=== PATIENT | male | born 2000 | race Caucasian/White ===

== ENCOUNTER 2021-08-04 08:00 | Outpatient (CLI) | payer SELFPAY | END 2021-08-04 23:59 | LOC: LAB.N 08:00 | PROVIDERS: ATTEND Physician Assistant Medical | DX: R05.9 Cough, unspecified (principal); R09.81 Nasal congestion; Z20.822 Contact with and (suspected) exposure to COVID-19 ==

== ENCOUNTER 2021-09-21 19:18 | Emergency (ER) | payer OTHER ==
--- NOTE | 2021-09-21 19:47 | ED Physician Documentation ---
PD HPI CHEST PAIN - Stated complaint Stated Complaint: ELECTRICAL SHOCK - Chief complaint Chief Complaint: Cardiac - History obtained from History obtained from: Patient - Additional information Additional information: Electric shock to the left thumb around 530 tonight while working on [employer] V equipment at the [employer]. Subsequently developed some substernal chest pain which is now gone. He feels okay now. No thumb or arm pain. Review of Systems Nose: denies: Rhinorrhea / runny nose, Congestion Cardiac: denies: Palpitations, Pedal edema, Calf pain Respiratory: denies: Dyspnea, Cough, Hemoptysis, Wheezing PD PAST MEDICAL HISTORY - Present Medications Home Medications: Ambulatory Orders Medication Instructions Recorded Confirmed No Known Home Medications 09/21/21 09/21/21 - Allergies Allergies/Adverse Reactions: Allergies Allergy/AdvReac Type Severity Reaction Status Date / Time No Known Drug Allergies Allergy Verified 09/21/21 19:27 PD ED PE NORMAL - Vitals Vital signs reviewed: Yes - General General: Alert and oriented X 3, No acute distress - Neck Neck: Supple, no meningeal sign, No bony TTP - Cardiac Cardiac: RRR, No murmur - Respiratory Respiratory: No respiratory distress, Clear bilaterally - Abdomen Abdomen: Normal bowel sounds, Soft, Non tender - Back Back: No CVA TTP, No spinal TTP - Derm Derm: Normal color, Warm and dry - Extremities Extremities: No edema - Neuro Neuro: Alert and oriented X 3, Normal speech Results - Vitals Vitals: Vital Signs - 24 hr 09/21/21 09/21/21 19:21 19:52 Temperature 36.1 C L 36.3 C L Heart Rate 76 71 Respiratory 18 18 Rate Blood Pressure 149/78 H 141/75 H O2 Saturation 100 100 Oxygen O2 Source Room air - EKG (time done) 1928 Rate: Rate (enter#) (92) Rhythm: NSR [place]: Normal Intervals: Normal NC Ischemia: Normal ST segments PD MEDICAL DECISION MAKING - ED course ED course: 21-year-old gentleman presents after electric shock with normal exam and normal EKG. Its been 2 hours already so he is cleared to return to work without specific limitations. Departure - Departure Disposition: 01 Home, Self Care Clinical Impression: Electric shock Condition: Good Record reviewed to determine appropriate education?: Yes Instructions: ED Chest Pain Atypical Unkn Cause Forms: Activity restrictions Discharge Date/Time: 09/21/21 20:10
[2021-09-21 19:54] VITALS: BP 141/75
== END 2021-09-21 20:10 | disposition home or self-care (01) ==
LOC: ED 19:18
DX: S69.92XA Unspecified injury of left wrist, hand and finger(s), initial encounter (principal); W86.8XXA Exposure to other electric current, initial encounter; Y92.139 Unspecified place military base as the place of occurrence of the external cause; Y99.1 Military activity
CPT/HCPCS: 93005; 99282; 99283

== ENCOUNTER 2021-12-13 23:19 | Emergency (ER) | payer OTHER ==
[2021-12-13 23:54] LABS: BASOPHILS % (AUTO) 0.5 %; EOSINOPHILS # (AUTO) 0.2 10^3/uL (0.0-0.7); EOSINOPHILS % (AUTO) 3.2 %; HCT - HEMATOCRIT 42.1 % (42.0-52.0); HGB - HEMOGLOBIN 14.4 g/dL (14.0-18.0); LYMPHOCYTES # (AUTO) 2.1 10^3/uL (1.5-3.5); LYMPHOCYTES % (AUTO) 36.8 %; MEAN CORPUSCULAR HGB CONC 34.2 g/dL (32.0-36.0); MEAN CORPUSCULAR VOLUME 84.7 fL (80.0-94.0); MEAN PLATELET VOLUME 10.5 fL (7.4-11.4); MONOCYTES # (AUTO) 0.4 10^3/uL (0.0-1.0); MONOCYTES % (AUTO) 7.4 %; NEUTROPHILS % (AUTO) 51.9 %; PLT - PLATELET COUNT 243 10^3/uL (130-450); RED BLOOD COUNT 4.97 10^6/uL (4.70-6.10); RED CELL DISTRIBUTION WIDTH 11.9 % (12.0-15.0); WHITE BLOOD COUNT 5.7 x10^3/uL (4.8-10.8)
[2021-12-14 00:06] LABS: ALBUMIN 4.8 g/dL (3.2-5.5); ALBUMIN/GLOBULIN RATIO 1.5 (1.0-2.2); BILIRUBIN,TOTAL 0.3 mg/dL (0.2-1.0); CALCIUM 9.5 mg/dL (8.5-10.3); CREATININE 1.1 mg/dL (0.6-1.2); POTASSIUM 3.9 mmol/L (3.5-5.0)
[2021-12-14 00:13] LABS: BILIRUBIN,URINE NEGATIVE (NEGATIVE); GLUCOSE, URINE (UA) NEGATIVE (NEGATIVE); KETONES,URINE (UA) NEGATIVE (NEGATIVE); LEUKOCYTE ESTERASE, URINE NEGATIVE (NEGATIVE); NITRITE,URINE NEGATIVE (NEGATIVE); OCCULT BLOOD,URINE NEGATIVE (NEGATIVE); PH,URINE 5.5 PH (5.0-7.5); PROTEIN,URINE NEGATIVE (NEGATIVE); UROBILINOGEN,URINE 0.2 (NORMAL) E.U./dL (NORMAL)
[2021-12-14 00:16] LABS: CLARITY,URINE CLEAR (CLEAR)
--- NOTE | 2021-12-14 00:46 | ED Physician Documentation ---
PD HPI ABD PAIN - Stated complaint Stated Complaint: ABD PX - Chief complaint Chief Complaint: Abd Pain - History obtained from History obtained from: Patient - History of Present Illness Timing - onset: How many days ago (3) Timing - details: Gradual onset, Waxing and waning Pain level now: 3 Quality: Pain Location: RUQ, RLQ Radiation: Right flank Associated symptoms: Nausea (3 days ago but no nausea since then), Constipation. No: Fever, Vomiting, Diarrhea, Melena, Hematochezia Similar symptoms before: Has not had sx before Recently seen: Not recently seen - Additional information Additional information: patient says he was constipated last week but used magnesium citrate and miralax with subsequent BM including earlier today. He had nausea without vomiting 3 days ago but not since. He c/o 3 days of right-sided abdominal pain, intermittent / episodic. No inciting, exacerbating, or ameliorating factors. He is pain -free at the time of this H+P. He denies h/o similar pain. Review of Systems Constitutional: reports: Reviewed and negative GI: reports: Abdominal Pain, Nausea (3 days ago but resolved), Constipation. denies: Vomiting : denies: Dysuria, Frequency, Hematuria PD PAST MEDICAL HISTORY - Past Medical History Past Medical History: Yes HEENT: Other Other Past Medical History: Mononucleosis - Past Surgical History Past Surgical History: No - Present Medications Home Medications: Ambulatory Orders Medication Instructions Recorded Confirmed No Known Home Medications 09/21/21 12/13/21 - Allergies Allergies/Adverse Reactions: Allergies Allergy/AdvReac Type Severity Reaction Status Date / Time No Known Drug Allergies Allergy Verified 12/13/21 23:26 - Social History Does the pt smoke?: No Smoking Status: Never smoker Does the pt drink ETOH?: No Does the pt have substance abuse?: No - Immunizations Immunizations are current?: Yes - POLST Patient has POLST: No PD ED PE NORMAL - Vitals Vital signs reviewed: Yes - General General: Alert and oriented X 3, No acute distress, Well developed/nourished - Cardiac Cardiac: RRR, No murmur - Respiratory Respiratory: No respiratory distress, Clear bilaterally - Abdomen Abdomen: Normal bowel sounds, Soft, Non tender, Non distended, No organomegaly - Back Back: No CVA TTP - Derm Derm: No rash Results - Vitals Vitals: Oxygen O2 Source Room air - Labs Labs: Laboratory Tests 12/13/21 12/13/21 12/13/21 23:35 23:35 23:53 WBC 5.7 RBC 4.97 Hgb 14.4 Hct 42.1 MCV 84.7 MCH 29.0 MCHC 34.2 RDW 11.9 L Plt Count 243 MPV 10.5 Neut # (Auto) 3.0 Lymph # (Auto) 2.1 [place] # (Auto) 0.4 Eos # (Auto) 0.2 Baso # (Auto) 0.0 Absolute Nucleated RBC 0.00 Nucleated RBC % 0.0 Sodium 141 Potassium 3.9 Chloride 104 Carbon Dioxide 26 Anion Gap 11.0 BUN 16 Creatinine 1.1 Estimated GFR (MDRD) 85 L Glucose 104 H Calcium 9.5 Total Bilirubin 0.3 AST 23 ALT 22 Alkaline Phosphatase 60 Total Protein 8.0 Albumin 4.8 Globulin 3.2 Albumin/Globulin Ratio 1.5 Lipase 34 Urine Color YELLOW Urine Clarity CLEAR Urine pH 5.5 Ur Specific [place] >=1.030 H Urine Protein NEGATIVE Urine Glucose (UA) NEGATIVE Urine Ketones NEGATIVE Urine Occult Blood NEGATIVE Urine Nitrite NEGATIVE Urine Bilirubin NEGATIVE Urine Urobilinogen 0.2 (NORMAL) Ur Leukocyte Esterase NEGATIVE Ur Microscopic Review NOT INDICATED Urine Culture Comments NOT INDICATED PD MEDICAL DECISION MAKING - ED course Complexity details: reviewed results, re-evaluated patient, considered differential, d/w patient ED course: essentially normal blood tests and UA (UA with high SG but otherwise normal, CBC with minimally low RDW but otherwise normal, and ER abd. panel with glucose 104 and 85 GFR but normal BUN, creatinine). Differential includes renal colic (unlikely given lack of hematuria and considering patients age), biliary colic (also would be unusual for age), constipation (symptoms not improved after BM today, but would still be possibility). Doubt appendicitis (pain-free on this exam, nontender on exam, no leukocytosis). Results d/w patient, return precautions discussed. Departure - Departure Disposition: 01 Home, Self Care Clinical Impression: Abdominal pain Qualifiers: Abdominal location: right upper quadrant Qualified Code(s): R10.11 - Right upper quadrant pain Condition: Good Instructions: ED Abdominal Pain Unkn Cause Male Follow-Up: ALEA Penn [Provider Group] Comments: As we discussed, your lab test results are normal. This does not mean absence of a cause of your pain, but at this time, based on these tests as well as the lack of pain/tenderness on the physical exam, further emergent testing is not indicated at this time. Follow up with your primary care provider in 3-5 days for reevaluation. Discharge Date/Time: 12/14/21 01:20
[2021-12-14 01:21] VITALS: BP 122/68
== END 2021-12-14 01:20 | disposition home or self-care (01) ==
LOC: ED 23:19
DX: R10.11 Right upper quadrant pain (principal)
CPT/HCPCS: 36415; 80053; 81001; 81003; 83690; 85025; 87086; 99282; 99283

== ENCOUNTER 2022-01-05 15:27 | Emergency (ER) | payer OTHER ==
[2022-01-05 16:10] LABS: BASOPHILS % (AUTO) 0.5 %; EOSINOPHILS % (AUTO) 0.7 %; HCT - HEMATOCRIT 42.3 % (42.0-52.0); HGB - HEMOGLOBIN 14.3 g/dL (14.0-18.0); LYMPHOCYTES # (AUTO) 1.3 10^3/uL (1.5-3.5); LYMPHOCYTES % (AUTO) 29.7 %; MEAN CORPUSCULAR HEMOGLOBIN 28.7 pg (27.0-31.0); MEAN CORPUSCULAR HGB CONC 33.8 g/dL (32.0-36.0); MEAN CORPUSCULAR VOLUME 84.9 fL (80.0-94.0); MEAN PLATELET VOLUME 10.6 fL (7.4-11.4); MONOCYTES # (AUTO) 0.3 10^3/uL (0.0-1.0); MONOCYTES % (AUTO) 6.2 %; NEUTROPHILS # (AUTO) 2.6 10^3/uL (1.5-6.6); NEUTROPHILS % (AUTO) 62.7 %; PLT - PLATELET COUNT 192 10^3/uL (130-450); RED BLOOD COUNT 4.98 10^6/uL (4.70-6.10); RED CELL DISTRIBUTION WIDTH 11.9 % (12.0-15.0); WHITE BLOOD COUNT 4.2 x10^3/uL (4.8-10.8)
[2022-01-05 16:22] LABS: ALBUMIN/GLOBULIN RATIO 1.5 (1.0-2.2); BILIRUBIN,TOTAL 0.5 mg/dL (0.2-1.0); CALCIUM 10.5 mg/dL (8.5-10.3); CREATININE 1.3 mg/dL (0.6-1.2); POTASSIUM 3.8 mmol/L (3.5-5.0); TOTAL PROTEIN 8.3 g/dL (6.7-8.2)
--- NOTE | 2022-01-05 17:14 | ED Physician Documentation ---
PD HPI ABD PAIN - Stated complaint Stated Complaint: DIARRHEA,DIZZY - Chief complaint Chief Complaint: Abd Pain - History obtained from History obtained from: Patient - History of Present Illness Timing - onset: How many months ago (1) Timing - duration: Months (1) Timing - details: Gradual onset Pain level max: 5 Pain level now: 5 Quality: Aching, Pain Location: Periumbilical, RLQ Associated symptoms: Diarrhea, Constipation. No: Fever, Nausea, Vomiting, Melena, Hematochezia, Dysuria, Chest pain - Additional information Additional information: No recent travel. No recent antibiotics. Nothing makes it better or worse. Review of Systems Constitutional: denies: Fever, Chills GI: denies: Vomiting, Hematemesis, Bloody / black stool Skin: denies: Rash Musculoskeletal: denies: Neck pain, Back pain Neurologic: denies: Headache PD PAST MEDICAL HISTORY - Past Medical History Past Medical History: No HEENT: Other - Past Surgical History Past Surgical History: No - Present Medications Home Medications: Ambulatory Orders Medication Instructions Recorded Confirmed polyethylene glycoL 3350 [Miralax] 17 gm PO DAILY 01/05/22 01/05/22 - Allergies Allergies/Adverse Reactions: Allergies Allergy/AdvReac Type Severity Reaction Status Date / Time No Known Drug Allergies Allergy Verified 01/05/22 15:41 - Social History Does the pt smoke?: No Smoking Status: Never smoker Does the pt drink ETOH?: No Does the pt have substance abuse?: No - Immunizations Immunizations are current?: Yes - POLST Patient has POLST: No PD ED PE NORMAL - Vitals Vital signs reviewed: Yes - General General: Alert and oriented X 3, No acute distress, Well developed/nourished - HEENT HEENT: PERRL, Moist mucous membranes - Neck Neck: Supple, no meningeal sign - Cardiac Cardiac: RRR, Strong equal pulses - Respiratory Respiratory: No respiratory distress, Clear bilaterally - Abdomen Abdomen: Soft, Non distended, Other (Mild tenderness palpation right lower quadrant. No peritoneal signs) - Back Back: No CVA TTP, No spinal TTP - Derm Derm: Warm and dry - Neuro Neuro: Alert and oriented X 3 - Psych Psych: Normal mood, Normal affect Results - Vitals Vitals: Vital Signs - 24 hr 01/05/22 01/05/22 15:35 17:37 Temperature 36.8 C 36.6 C Heart Rate 77 78 Respiratory 12 18 Rate Blood Pressure 115/63 142/90 H O2 Saturation 100 99 Oxygen O2 Source Room air - Labs Labs: Laboratory Tests 01/05/22 01/05/22 16:03 16:03 WBC 4.2 L RBC 4.98 Hgb 14.3 Hct 42.3 MCV 84.9 MCH 28.7 MCHC 33.8 RDW 11.9 L Plt Count 192 MPV 10.6 Neut # (Auto) 2.6 Lymph # (Auto) 1.3 L [place] # (Auto) 0.3 Eos # (Auto) 0.0 Baso # (Auto) 0.0 Absolute Nucleated RBC 0.00 Nucleated RBC % 0.0 Sodium 142 Potassium 3.8 Chloride 103 Carbon Dioxide 29 Anion Gap 10.0 BUN 15 Creatinine 1.3 H Estimated GFR (MDRD) 70 L Glucose 95 Calcium 10.5 H Total Bilirubin 0.5 AST 41 ALT 51 Alkaline Phosphatase 54 Total Protein 8.3 H Albumin 5.0 Globulin 3.3 Albumin/Globulin Ratio 1.5 Lipase 28 - Rads (name of study) CT abdomen pelvis without contrast Radiology: Final report received, EMP read contemporaneously, See rad report PD MEDICAL DECISION MAKING - ED course Complexity details: reviewed results, re-evaluated patient, considered differential, d/w patient ED course: 21-year-old male presents to the emergency department with intermittent constipation for the past month as well as right lower quadrant abdominal pain. Diarrhea since starting MiraLAX. We will have him stop the MiraLAX. No sign ificant lab abnormalities. CT scan shows a proximal colitis with thickening of the cecum ascending and transverse colon. Has not had any fevers. No recent antibiotics or travel. We will have him follow-up with his doctor for further evaluation including colonoscopy. Patient is well-appearing, nontoxic. Afebrile. The CT scan was performed without IV contrast as there is a national shortage of IV contrast. The remaining doses of IV contrast are reserved for specific indications and this patient does not meet criteria at this time. Patient counseled regarding signs and symptoms for which I believe and urgent re-evaluation would be necessary. Patient with good understanding of and agreement to plan and is comfortable going home at this time This document was made in part using voice recognition software. While efforts are made to proofread this document, sound alike and grammatical errors may occur. IMPRESSION: Proximal colitis, thickening of the cecum, ascending colon and transverse colon. Please correlate with potential infectious and inflammatory causes. No findings of perforation or abscess can be seen. Normal appendix. Normal-appearing terminal ileum. Departure - Departure Disposition: 01 Home, Self Care Clinical Impression: Abdominal pain Qualifiers: Abdominal location: unspecified location Qualified Code(s): R10.9 - Unspecified abdominal pain Diarrhea Qualifiers: Diarrhea type: unspecified type Qualified Code(s): R19.7 - Diarrhea, unspecified Constipation Qualifiers: Constipation type: unspecified constipation type Qualified Code(s): K59.00 - Constipation, unspecified Condition: Good Instructions: ED Abdominal Pain Unkn Cause Male Follow-Up: ALBIN MARQUES DO [Primary Care Provider] - Within 1 week Comments: Please follow-up with your doctor for further care. Return if you worsen. I would stop the MiraLAX until you have been seen by your doctor. The next step in your care will likely be colonoscopy and a referral to gastroenterology. You could have something such as irritable bowel syndrome. Your blood work and CT scan do not show any acute abnormalities today. Make sure you are drinking plenty of water at home. Avoid alcohol and caffeine. Your CT scan does show a proximal colitis with thickening of your cecum. This could be seen in inflammatory bowel disease such as ulcerative colitis or Crohn's disease. This could also be seen with a potential infectious disease such as a viral colitis. IMPRESSION: Proximal colitis, thickening of the cecum, ascending colon and transverse colon. Please correlate with potential infectious and inflammatory causes. No findings of perforation or abscess can be seen. Normal appendix. Normal-appearing terminal ileum. Discharge Date/Time: 01/05/22 17:38
--- NOTE | 2022-01-05 17:14 | CT Report ---
PROCEDURE: Abdomen/Pelvis WO INDICATIONS: RLQ abd pain TECHNIQUE: Noncontrast 5 mm thick sections acquired from the diaphragms to the symphysis. 5 mm coronal and sagi ttal reformats were then performed. For radiation dose reduction, the following was used: automated exposure control, adjustment of mA and/or kV according to patient size. COMPARISON: None. FINDINGS: Image quality: Excellent. ABDOMEN: Lung bases: Lung bases are clear. Heart size is normal. Solid organs: Liver and spleen are normal in size. Gallbladder Dr. Wall Pancreas is normal in cont ours. No adrenal nodules. Kidneys are normal in size, without hydronephrosis or nephrolithiasis. Peritoneum and bowel: In this patient with this given history, scrutiny is given to the appendix. Th e appendix is well-seen and is normal, as seen on series 6 images 22 and 23. No focal right lower luis carlos drant inflammatory changes are seen. Moderate wall thickening can be seen involving the cecum and the ascending colon with involvement of the transverse colon. The more distal colon is collapsed, yet does not demonstrate significant wall t hickening. Minimal surrounding inflammatory change can be seen. No free fluid or air. Negative for a bscess. The terminal ileum is normal. No significant small bowel abnormality can be seen. Nodes and vessels: No retroperitoneal or mesenteric adenopathy by size criteria. Aorta and inferior vena cava are normal in caliber. Miscellaneous: No ventral hernias. PELVIS: Genitourinary: Bladder wall thickness is normal. Miscellaneous: No inguinal hernias or adenopathy. Bones: No suspicious bony lesions. No vertebral body compression fractures. IMPRESSION: Proximal colitis, thickening of the cecum, ascending colon and transverse colon. Please correlate wit h potential infectious and inflammatory causes. No findings of perforation or abscess can be seen. Normal appendix. Normal-appearing terminal ileum. Reviewed by: Miki Rincon MD on 01/05/2022 4:13 PM [email or web address] Approved by: Miki Rincon MD on 01/05/2022 4:13 PM AKDT Station ID: [id number]
[2022-01-05 17:38] VITALS: BP 142/90
== END 2022-01-05 17:38 | disposition home or self-care (01) ==
LOC: ED 15:27
DX: K59.00 Constipation, unspecified (principal); R19.7 Diarrhea, unspecified
CPT/HCPCS: 36415; 80053; 83690; 85025; 99282; 99284

== ENCOUNTER 2023-09-16 09:50 | Outpatient (CLI) | payer OTHER ==
--- NOTE | 2023-09-16 10:38 | Sleep Patient Instructions ---
Sleep Center Visit Summary - Patient Visit Information Reason for Visit: Initial consult for evaluation of sleep disordered breathing and other sleep issues. - Patient Instructions Instructions Attached: Sleep Study Home Monitor, Sleep Study Additional Instructions: You will be completing a sleep study, either an in-lab polysomnography (PSG) or home sleep study (HST). You will follow-up in the sleep care office after the sleep study is completed to hear the results and talk about therapy, if needed. You will be called by our office staff to schedule this appointment, but you may contact us with any questions. - Clinic Information Contact: [facility] [address] [place] [id number] [email or web address] T: [phone]
--- NOTE | 2023-09-16 10:44 | SLEEP CARE CONSULTATION ---
Information from patient questionnaire entered by Kristina Alvarado. I have reviewed and concur with the information entered by Kristina Alvarado. This document represents the service I personally performed and the decisions made by me, Marlena Hancock ARNP. History of Present Illness Service Date and Time: 09/16/2023 0950 Reason for Visit: New patient Chief Complaint: reports: Unrefreshed sleep, Snoring, Excessive daytime sleepiness, Fatigue, Frequent awakenings at night Date of Onset: 3-4MONTHS Usual bedtime: 930PM Time it takes to fall asleep: 1+HRS Snores at night: Yes Observed to quit breathing while asleep: No Sleeps alone due to snoring: No Number of times waking at night: 4-5 Reasons for waking at night: reports: Snoring, Gasping for air, Other (UNKNOWN). denies: Choking Toss, Turn, or Twitch while sleeping: Yes Recalls having dreams: No Usually gets out of bed at: 530AM; weekend about 0630 Feels refreshed in the morning: No Morning headache: Yes (1-2 times a month; last about 30 minutes) Sleepy or fatigued during the day: Yes Ever fallen asleep while driving: Yes (drowsy driving sometimes) Takes day naps: Yes (daily now; sleeps for an hour) Dreams during day naps: No Prior sleep studies: No Additional HPI information: I had the pleasure of seeing AMRIK LOPEZ today regarding the possibility of him having a sleep disorder. His current complaints are unrefreshed sleep, snoring, excessive daytime sleepiness, fatigue and frequent night awakenings. He says he is not sleeping good at night and is tired all the time during the day. His snoring is relatively quiet and intermittent according to his . His has never mentioned that he stops breathing at night. He does not wake up feeling rested normally and sometimes with headaches. He does experience drowsy driving with long trips and other times. He has never had an accident. He says his parents both has sleep apnea and are treated with PAP machines. - Parasomnia Symptoms Ever been unable to move upon waking from sleep: No Walks in sleep: No Talks in sleep: Yes Ever acted out dreams in sleep: No Ever felt weak in the knees when startled or emotional: No Bothered by creepy, crawly, restless sensations in legs: No Problems with memory or concentration: No Subjective Initial [place] Sleepiness Scale score: 12 (07/27/23) Past Medical History Past Medical History: reports: Anxiety Social History The patient's occupation is a AM. Patient is and lives in . Have you smoked in the past 12 months: No Cigarettes per day (20/pack): 5 Years of smokin Quit date: 10/2021 Smoking Pack Years: 0.2 Alcohol use: Yes Alcohol amount and frequency: 1 DRINK 1 A MONTH Caffeine use: Yes Caffeine amount and frequency: 1-2 A DAILY Family History Family history of sleep disordered breathing: Yes Family Hx Sleep Apnea: Mother: Snoring, Sleep apnea - Treated, Father: Snoring, Sleep apnea - Treated Allergies and Home Medications Known drug allergies: No Drug allergies reviewed: Yes Home medication list reviewed: Yes Allergy and home medication list: Allergies No Known Drug Allergies Allergy (Verified 09/14/23 10:21) Home Medications Medication Instructions Recorded Confirmed Last Taken Type No Known Home Medications 09/16/23 09/16/23 Unknown History Review of Systems Cardiovascular: denies: high blood pressure Gastrointestinal: reports: vomitting, abdominal pain. denies: heartburn Neurological: denies: headaches, head trauma Psychiatric: reports: anxiety Ear/Nose/Throat: reports: sinus problems, nose bleeds, wisdom teeth removed. denies: injury to nose, tonsillectomy Physical Exam Vital signs obtained and entered by: KRISTINA Rosales MA Blood Pressure: 110/83 (RIGHT ARM) Cuff size: regular Heart Rate: 73 O2 Saturation: 98 Height: 5 ft 11 in (PER PT) Weight: 236 lb Body Mass Index: 32.9 BMI Classification: Obese Neck circumference: 17 Mouth and throat: narrow oropharynx Soft palate: long Hard palate: normal Uvula: normal Uvula visualization: 25% Mallampati Class III Tongue: enlarged in size with teeth jimenes on lateral edges Tonsils: 2+ Neck: normal w/o lymphadenopathy or thyromegaly Heart: regular rate and rhythm Lungs: clear bilaterally Impression and Plan 1. Suspected Obstructive Sleep Apnea-Hypopnea Syndrome, as suggested by a history of loud and irregular snoring, gasping or choking in sleep, morning headache, frequent awakening during the night, unrefreshed sleep, cognitive impairment, and excessive daytime sleepiness. Narrow oropharynx and obesity are common predisposing factors for obstructive sleep apnea-hypopnea syndrome. I recommend proceeding to polysomnography to confirm the diagnosis and to assess severity. If the patient has significant sleep disordered breathing, a manual CPAP titration study will also be performed to find the optimal treatment pressure. I informed the patient of what the sleep studies involve and after some discussion, obtained agreement to proceed. The pathophysiology of obstructive sleep apnea-hypopnea syndrome was discussed with the patient and health risks of cardiovascular and cerebrovascular disease if not treated. Risks of drowsy driving discussed in detail and patient advised to avoid long distance driving and to black puller at the first sign of drowsiness. Patient agreed to plan. * Schedule polysomnography +- manual CPAP titration study and return in 1-2 weeks after the study to discuss result and initiate therapy. * Avoid long distance driving or driving when feeling sleepy. * Avoid alcohol, sedative and muscle relaxant around bedtime. * Attempt to lose weight. * Review instructions provided by trained office staff on how to prepare for the sleep study. * Return for follow-up after sleep study completed. Counseling Topics: Weight loss health impact Follow up with Sleep Care in: other (after sleep study) Plan: PSG/HST Visit Type: In Office Time Spent with Patient (minutes): 30 Provider Statement: I spent 100% of the Face to Face Visit with the patient with greater than 50% spent counseling the patient and coordination of care.
[2023-09-16 10:50] VITALS: BP 110/83; O2SAT 98
== END 2023-09-16 09:51 | disposition home or self-care (01) ==
LOC: SC 09:50
PROVIDERS: ATTEND Nurse Practitioner Family
DX: R06.83 Snoring (principal); G47.8 Other sleep disorders; G47.10 Hypersomnia, unspecified; R53.83 Other fatigue; R51.9 Headache, unspecified; Z87.891 Personal history of nicotine dependence; R41.89 Other symptoms and signs involving cognitive functions and awareness; E66.9 Obesity, unspecified; Z68.32 Body mass index [BMI] 32.0-32.9, adult
CPT/HCPCS: 99203; 99212

== ENCOUNTER 2023-10-05 04:10 | Emergency (ER) | payer OTHER ==
[2023-10-05] MEDS: IBUPROFEN 600 MG TABLET PO STA (04:41)
--- NOTE | 2023-10-05 05:03 | ED Physician Documentation ---
History of Present Illness - Stated complaint Stated Complaint: L ANKLE PX - Chief complaint Chief Complaint: Ext Problem - History obtained from History obtained from: Patient, Family () - Additonal information Additional information: 23-year-old man presents with left ankle injury after landing on it wrong while playing basketball. Patient was able to bear weight immediately after but is now unable to do so. Endorses swelling and pain to bilateral aspects of the left ankle along with some tingling in the toes. PD PAST MEDICAL HISTORY - Past Medical History Cardiovascular: None Respiratory: None Neuro: None Endocrine/Autoimmune: None GI: None : None HEENT: Other Psych: None Musculoskeletal: None Derm: None - Past Surgical History Past Surgical History: Yes HEENT: Other - Present Medications Home Medications: Ambulatory Orders Medication Instructions Recorded Confirmed No Known Home Medications 09/16/23 10/05/23 - Allergies Allergies/Adverse Reactions: Allergies Allergy/AdvReac Type Severity Reaction Status Date / Time No Known Drug Allergies Allergy Verified 10/05/23 04:22 - Social History Does the pt smoke?: No Smoking Status: Never smoker Does the pt drink ETOH?: No Does the pt have substance abuse?: No - Immunizations Immunizations are current?: Yes - POLST Patient has POLST: No PD ED PE NORMAL - Vitals Vital signs reviewed: Yes - General General: Alert and oriented X 3, No acute distress, Well developed/nourished - HEENT HEENT: Atraumatic, PERRL, EOMI - Derm Derm: Normal color, Warm and dry, Other (No ecchymosis) - Extremities Extremities: Other (CSM intact left lower extremity. ttp along lateral and medial malleolus of L ankle. L 5th MT nontender) Results - Vitals Vitals: Vital Signs - 24 hr 10/05/23 04:19 Temperature 36 C L Heart Rate 80 Respiratory 18 Rate Blood Pressure 117/55 L O2 Saturation 97 Oxygen O2 Source Room air PD Medical Decision Making - ED course ED course: 23yM p/w L ankle injury, without acute fracture on wet read of xray. posterior splint placed and nonweightbearing recommended. crutches provided. plan to f/u ortho in 1 week for repeat xrays. return precautions given. Departure - Departure Disposition: 01 Home, Self Care Clinical Impression: Ankle injury Condition: Stable Instructions: ED RICE Follow-Up: James Boyd MD [Provider Admit Priv/Credential] - Comments: You were seen in the emergency department for ankle injury. Your initial xrays did not show a break in the bone. You should have repeat xrays in 7-10 days. wear your splint and use your crutches until you follow up with orthopedics. Please return to the emergency department if you have any new or worsening symptoms or other concerns. Forms: PCP List, Activity restrictions
[2023-10-05 06:06] VITALS: BP 115/65; O2SAT 98
--- NOTE | 2023-10-05 08:15 | XRAY Report ---
PROCEDURE: Ankle 3+V LT INDICATIONS: ankle pain TECHNIQUE: 3 views of the ankle were acquired. COMPARISON: None. FINDINGS: Bones: No fractures or dislocations. Ankle mortise is normally aligned. No suspicious bony lesions . Soft tissues: No tibiotalar joint effusion. Achilles tendon appears normal. Lateral soft tissue sw elling. IMPRESSION: Lateral ankle sprain. No acute bony abnormality. If there remains a high clinical concern for fractur e, consider cross-sectional imaging now. If pain persists, consider repeat x-ray in 10-14 days or [employer] farm hand ss-sectional imaging. Findings are concordant with preliminary interpretation provided by [facility]. Reviewed by: Sharan Chapa MD on 10/05/2023 8:14 AM PDT Approved by: Sharan Chapa MD on 10/05/2023 8:14 AM PDT Station ID: [id number]
== END 2023-10-05 05:56 | disposition home or self-care (01) ==
LOC: ED 04:10
DX: S93.402A Sprain of unspecified ligament of left ankle, initial encounter (principal); X50.9XXA Other and unspecified overexertion or strenuous movements or postures, initial encounter; Y93.67 Activity, basketball
CPT/HCPCS: 73610; 99283; A9270

== ENCOUNTER 2023-10-24 08:42 | Outpatient (CLI) | payer OTHER | END 2023-10-24 08:43 | disposition home or self-care (01) | LOC: SC 08:42 | PROVIDERS: ATTEND Nurse Practitioner Family | DX: R06.83 Snoring (principal); R53.83 Other fatigue; G47.10 Hypersomnia, unspecified; G47.8 Other sleep disorders; E66.9 Obesity, unspecified; Z68.41 Body mass index [BMI] 40.0-44.9, adult | CPT/HCPCS: 95806 ==

== ENCOUNTER 2023-11-10 09:01 | Outpatient (CLI) | payer OTHER ==
--- NOTE | 2023-11-10 09:29 | Sleep Patient Instructions ---
Sleep Center Visit Summary - Patient Visit Information Reason for Visit: Sleep study follow-up - Patient Instructions Instructions Attached: Snoring Tips Prevent Additional Instructions: Your sleep study today was negative for significant sleep disordered breathing. You were found to have episodes of snoring. There are different ways to control snoring including weight loss, oral devices made by a dentist or surgical options through ENT specialist. You should not use oral devices that do not fit properly because they can affect your bite. You should also check insurance coverage of oral devices for snoring because they may not be cover well. You may obtain a referral to an ENT specialist through your primary provider. Follow-up as needed. - Clinic Information Contact: [facility] [address] [place] [address] [email or web address] T: [phone]
[2023-11-10 09:31] VITALS: BP 122/75; O2SAT 100
--- NOTE | 2023-11-10 09:31 | SLEEP CARE CONSULTATION ---
Information from patient questionnaire entered by Michelle Alvarado. I have reviewed and concur with the information entered by Michelle Alvarado. This document represents the service I personally performed and the decisions made by , Marlena Hancock ARNP. History of Present Illness Service Date and Time: 11/10/2023 09 Initial Dennison Sleepiness Scale score: 12 (07/27/23) Current Dennison Sleepiness Scale score: 14 (11/10/23) Additional HPI information: AMRIK LOPEZ returns for follow up and results of the recently performed home sleep study. The patient was informed of the following findings: No significant sleep disordered breathing with an average AHI of 0.8 and phyllis oxygen saturation of 91%. I explained the pathophysiology behind obstructive sleep apnea. Patient does not have sleep apnea and was advised how weight gain could increase the risk of developing sleep apnea in the future. I strongly encouraged the patient to lose weight. Patient has light snoring. Snoring can be reduced by weight loss. Weight loss is best achieved with diet consult. Patient instructed to contact PCP for referral. Snoring can also be treated with an oral appliance from a dentist. Advised to check insurance coverage. In addition, an ENT evaluation can be do to see if other treatment is indicated. Patient counseled not drink alcohol less than 4 hours before bedtime as it can increase snoring and apnea. Patient was cautioned about risks of drowsy driving until sleepiness symptoms resolve. Patient denies drowsy driving. Sleep Study - Results Type of Sleep Study: Home sleep study (COMPLETED 10/24/23) Prior sleep studies: No Polysomnography/Home Sleep Study results: Physician Impression: The quality of the study is good. The length of the study is adequate (> 240 minutes). Please also see the tabulated and graphic data. 1. No significant sleep disordered breathing, with an AHI of 0.8/hr and phyllis SaO2 of 91%. During the study, the patient had 6 apneas (6 obstructive, 0 central, 0 mixed) and 0 hypopneas. The longest episode lasted 14.0 seconds. The patient slept adequately in supine position (supine AHI was 0.9 and non-supine, 0.71). Allergies and Home Medications Known drug allergies: No Drug allergies reviewed: Yes Home medication list reviewed: Yes (no changes) Allergy and home medication list: Allergies No Known Drug Allergies Allergy (Verified 10/05/23 04:22) Review of Systems Review of systems same as previous: Yes (NO CHANGE) Physical Exam Vital signs obtained and entered by: MICHELLE Rosales MA Blood Pressure: 122/75 (RIGHT ARM) Cuff size: regular Heart Rate: 73 O2 Saturation: 100 Height: 5 ft 11 in Weight: 235 lb 12.8 oz Body Mass Index: 32.8 BMI Classification: Obese Impression and Plan 1. Snoring but no significant sleep disordered breathing. Patient advised that often weight loss will reduce snoring as well as apnea risk. An oral appliance can also be used for snoring. This would require a dental consultation. Patient cautioned not to use other online appliances as can cause bite issues. Patient is advised to check if insurance will cover. An ENT consult can also be helpful to determine if any other treatment is an option. 2. Obesity, unspecified. Currently patients BMI is 32.8. Obesity increases the risk of apnea, CPAP pressure requirements and overall health risks especially cardiovascular and diabetes. Thus patient is advised to lose weight. * Attempt to lose weight * Avoid alcohol consumption near bedtime * Return as needed for follow up. Counseling Topics: Weight loss health impact Follow up with Sleep Care in: as needed Visit Type: In Office Time Spent with Patient (minutes): 13 Provider Statement: I spent 100% of the Face to Face Visit with the patient with greater than 50% spent counseling the patient and coordination of care.
== END 2023-11-10 09:02 | disposition home or self-care (01) ==
LOC: SC 09:01
PROVIDERS: ATTEND Nurse Practitioner Family
DX: R06.83 Snoring (principal); E66.9 Obesity, unspecified; Z68.32 Body mass index [BMI] 32.0-32.9, adult
CPT/HCPCS: 99212

== ENCOUNTER 2024-03-12 21:17 | Outpatient (CLI) | payer OTHER ==
--- NOTE | 2024-03-13 15:57 | Ultrasound Report ---
PROCEDURE: Pelvic Limited INDICATIONS: RIGHT LOWER QUAD PAIN, RIGHT TESTICULAR PAIN TECHNIQUE: Real-time transabdominal scanning was performed of the right groin, with image documentation. COMPARISON: CT 01/05/2022 FINDINGS: Targeted ultrasound of the right groin demonstrates a fat-containing right inguinal hernia. The sac m easures 1 x 1.1 cm. The neck measures 0.5 cm. IMPRESSION: Small right inguinal hernia containing fat. Reviewed by: Breezy James MD on 03/13/2024 3:56 PM PDT Approved by: Breezy James MD on 03/13/2024 3:56 PM PDT Station ID: [id number]
--- NOTE | 2024-03-13 15:58 | Ultrasound Report ---
PROCEDURE: Testicle INDICATIONS: RIGHT LOWER QUAD PAIN, RIGHT TESTICULAR PAIN TECHNIQUE: Real-time scanning was performed of the scrotum and testicles, with image documentation. Color and p ulse Doppler interrogation was performed of both testicles. COMPARISON: None. FINDINGS: Right: Testicle is normal in size at 5.1 x 2.6 x 2.8 cm, and homogenous in echotexture. Epididymis is normal in overall size and morphology. No hydrocele. No varicoceles. Overlying scrotal skin is n ormal in thickness. Left: Testicle is normal in size at 4.7 x 2.4 x 2.8 cm, and homogeneous in echotexture. Epididymis is normal in overall size and morphology. No hydrocele. Small varicocele. Overlying scrotal skin is normal in thickness. Doppler: Color and pulse Doppler demonstrate normal and symmetric arterial flow in both testicles. IMPRESSION: Small left testicular varicocele. No findings to explain the patient's right testicular pain. No evidence of infection or torsion. Reviewed by: Breezy James MD on 03/13/2024 3:57 PM PDT Approved by: Breezy James MD on 03/13/2024 3:57 PM PDT Station ID: [id number]
== END 2024-03-12 21:18 | disposition home or self-care (01) ==
LOC: DI 21:17
PROVIDERS: ATTEND Nurse Practitioner Family
DX: N50.811 Right testicular pain (principal); I86.1 Scrotal varices; K40.90 Unilateral inguinal hernia, without obstruction or gangrene, not specified as recurrent